=== PATIENT | male | born 1955 | race Caucasian/White ===

== ENCOUNTER 2019-12-30 14:30 | Emergency (ER) | payer OTHER, SELFPAY ==
[2019-12-30 14:32] VITALS: BP 164/61; PULSE 85; RESP 17; TEMP 36.3; O2SAT 100; BMI 26.7
--- NOTE | 2019-12-30 15:09 | RAD_ITS ---
STUDY: X-RAY - RIGHT SHOULDER REASON FOR EXAM: Male, 64 years old. Patient had a fall one week ago, extensive bruising to mid humerus and swelling noted, pain with movement as well TECHNIQUE: 4 view(s) of the shoulder. COMPARISON: None. FINDINGS: Normal glenohumeral articulation. Normal acromioclavicular joint. Normal acromion. Normal humeral head and visualized proximal humerus. The soft tissue structures are unremarkable. Normal visualized pulmonary apex. RAD/Shoulder min 2 Views IMPRESSION: Normal x-ray examination of the shoulder. Electronically Signed: Travis Curiel, at 15:31 EST , Service support ,
--- NOTE | 2019-12-30 15:15 | RAD_ITS ---
STUDY: X-RAY - RIGHT HUMERUS REASON FOR EXAM: Male, 64 years old. Patient had a fall one week ago, extensive bruising to mid humerus and swelling noted, pain with movement as well TECHNIQUE: 2 view(s) of the humerus. COMPARISON: None. FINDINGS: Normal visualized humerus. There is no demonstrated fracture or osseous destructive process. There is no demonstrated soft tissue abnormality. RAD/Humerus min 2 Views IMPRESSION: Normal x-ray examination of the humerus. Electronically Signed: Travis Curiel, at 15:31 EST , Service support ,
--- NOTE | 2019-12-30 15:25 | ED.DCSUM_ITS ---
- ER Visit Summary Date of Service: 12/30/19 Chief Complaint: Fall with right shoulder and arm injury and bruising History of Present Illness: The patient is a 64 M no seen in past medical history. Patient states about a week ago he was carrying his dog slipped on the steps and landed injuring his right shoulder and upper arm. He had not had that seen and he fell again in the last 24 hours causing him more pain in the right arm and now bruising. He describes the pain along the shoulder and mid upper arm region. No prior history. He is right-hand dominant. Denies other injuries. Physical Examination: Older male no acute distress vital signs stable afebrile. H EENT exam unremarkable atraumatic. Pupils are reactive light. No scalp tenderness. C-spine, T-spine L-spine and back all nontender. Normal range of motion of his neck. Lungs clear to auscultation bilaterally. Heart regular rhythm no murmur. Chest were nontender. Abdomen soft nontender. Extremities left upper and both lower extremities normal range of motion. Nontender. No bruising or swelling. Normal donor recruiter strength dorsi and plantar flexion. The right shoulder upper arm and proximal forearm is bruised. He has a hematoma and he is most likely has a biceps tendon rupture. He has tenderness along the soft tissue and also of the humerus. And shoulder. He has normal flexion-extension at the elbow and wrist. Normal 5-5 donor recruiter strength of his right hand. Normal sensation and radial pulse. No deformity or tenderness along the right wrist or hand. Neurologically is awake alert with no focal motor deficits. Normal sensation. Test Results: Right shoulder x-ray 4 views shows no acute abnormality. Read by myself and the radiologist. Right humerus x-ray 2 views read by myself there is no acute abnormality read by myself and the radiologist. Emergency Department Course and Treatment: Patient with 2 falls over the last week with extensive bruising on his right upper arm and forearm. Bilateral most likely has a biceps tendon rupture and I will rule out any bony injury with x- rays. Tyree exam at 1616 p.m. unchanged. I would went over the x-rays with the patient. Treatment Plan: Ice to the area. Tylenol and Motrin for pain. Follow-up with orthopedics for his biceps tendon rupture. Disposition: dc Impression: Acute falls x2 Acute right biceps tendon rupture Right upper extremity bruising and hematoma This note was generated with [employer] dictation software. It may contain incorrect words, spelling, and punctuation that were not noted in review of the chart prior to signing ED Disposition - Plan for ED Patient: Referrals: Jamil Andrade MD [STAFF PHYSICIAN] -
--- NOTE | 2019-12-30 16:18 | DCINST.ED_ITS ---
ED Disposition - Plan for ED Patient: Disposition: Home or Assisted Living Referrals: Bucky Chris MD [STAFF PHYSICIAN] - As soon as possible David Salazar MD [STAFF PHYSICIAN] - As soon as possible Additional Instructions: Ice and elevate your right arm. I suspect that you have ruptured your biceps tendon. That is why there is all the bruising. The bones of your shoulder and your humerus were normal on x-rays. There is no fracture nor any dislocation. Ice and elevate. Motrin Tylenol for pain. Follow-up with an orthopedic physician of your choice either Dr. Chris with the [facility] or Dr. David Salazar with with orthopedics.
== END 2019-12-30 16:27 | disposition home or self-care (01) ==
PROVIDERS: Emergency Provider Emergency Medicine; PCP Internal Medicine
DX: S46.211A Strain of muscle, fascia and tendon of other parts of biceps, right arm, initial encounter (principal); W19.XXXA Unspecified fall, initial encounter; Z91.81 History of falling; S40.011A Contusion of right shoulder, initial encounter
CPT/HCPCS: 73030; 73060; 99282

== ENCOUNTER 2020-05-30 08:48 | Emergency (ER) | payer MEDICARE, SELFPAY ==
[2020-05-30 08:49] VITALS: BP 171/96; PULSE 79; RESP 16; TEMP 36.6; BMI 25.0
--- NOTE | 2020-05-30 08:59 | ED.DCSUM_ITS ---
History of Present Illness Chief Complaint: Upper Extremity Injury Informant: Patient Narrative: 65-year-old male with a past medical history presents with a cat bite to his right hand. States that the dog was trying to eat a cat in his neighbor's yard. This is a stray cat. States that he was able to get the cat away but the dog became free again and scared the cat and the cat bit and scratched his right hand and arm. States it actually feels improved today. Was concerned because he felt he may need antibiotics. Tetanus is been updated within the past 5 years. Denies any numbness or tingling. Denies any fever or chills. Past Medical History - Allergies and Home Meds Allergies/Adverse Reactions: Allergies No Known Allergies Allergy (Verified 05/30/20 08:50) Primary Care Physician: Jamil Andrade MD [Primary Care Provider] - Prior records reviewed: Yes Past Medical History: None Surgical History: no surgical history Lives: Alone Smoking Status: Unknown if ever smoked Alcohol: None Drugs: None Review of Systems General: Denies: Chills, Fever, Sweats Eyes: Denies: Visual changes - bilaterally, Diplopia ENT: Denies: Rhinorrhea, Sore throat Cardiovascular: Denies: Chest pain, Palpitations Respiratory: Denies: Dyspnea, Cough, Dyspnea on exertion Gastrointestinal: Denies: Abdominal pain, Nausea, Vomiting, Diarrhea, Melena, Hematochezia Genitourinary: Denies: Dysuria, Hematuria, Frequency Musculoskeletal: Denies: Back pain, Extremity Pain Skin: Reports: Wounds. Denies: Rash Neurological: Denies: Headache, Weakness, Numbness Physical Exam Vital Signs/Narrative: Vital Signs Temp Pulse Resp BP 05/30/20 08:49 97.8 F 79 16 171/96 H Inital Vital Signs reviewed: Yes General: Well nourished, Well developed, No Acute Distress Head: Normocephalic, Atraumatic Eyes: Perrl, EOMI ENT: Moist mucous membranes, No rhinorrhea Neck: Supple, Nontender Cardiovascular: Regular rate, Regular rhythm, No murmurs Respiratory: No distress, CTA bilaterally, Chest nontender Abdomen: Soft, Nontender, Nondistended, Normal bowel sounds Back: Nontender, Normal Inspection Extremities: Nontender, No edema Skin: Normal color, No rash, - - Small puncture wounds to the right dorsal hand. No signficant edema or erythema. Full ROM of the right hand. Neurological: Alert, Oriented x3, Cranial nerves II-XII grossly intact, Normal Strength, Normal Sensation Psychological: Normal affect, Normal Mood Diagnostic/Tx/Re-eval - Medical Decision Making Patient appears well nontoxic. Vital signs within normal limits. Small puncture wounds present to the right dorsal hand. Full range of motion. No evidence of abscess. Patient's tetanus is up-to-date. Patient offered x-ray to assess for foreign body which he declined. Will be placed on Augmentin for the next 10 days. Asked to return for worsened swelling or pain. Patient agreeable and discharged home in stable condition. Impression: 1. Right hand cat bite ED Disposition - Plan for ED Patient: Disposition: Home or Assisted Living Instructions: ED Bite Cat Prescriptions: Amoxicillin/Potassium Clav [Augmentin 875-125 Tablet] 1 ea PO BID #20 tab Transmission Status: Pending to [facility] Referrals: Jamil Andrade MD [Primary Care Provider] - Additional Instructions: Please return for any increased swelling or drainage from the right hand.
[2020-05-30 09:02] VITALS: BP 171/96; PULSE 79; RESP 16; TEMP 36.6
== END 2020-05-30 09:58 | disposition home or self-care (01) ==
PROVIDERS: Emergency Provider Emergency Medicine; PCP Internal Medicine
DX: S61.451A Open bite of right hand, initial encounter (principal); W55.01XA Bitten by cat, initial encounter
CPT/HCPCS: 99282